=== PATIENT | female | born 1945 | race Caucasian/White ===

== ENCOUNTER 2021-05-30 18:03 | Emergency (ER) | payer OTHER ==
[2021-05-30 20:26] LABS: BASOPHIL 0.6 % (0-2); EOSINOPHIL 3.5 % (0-7); HCT 53.1 % (37.0-47.0); HGB 17.8 g/dl (12.5-16.0); LYMPHOCYTE 30.9 % (15-48); MCH 30.5 pg (25.0-31.0); MCHC 33.5 g/dL (32.0-36.0); MCV 91.1 fL (78.0-100.0); MONOCYTE 9.8 % (0-12); MPV 10.6 fL (6.0-9.5); NEUTROPHIL 54.8 % (41-80); NRBC 0; PLT 200 K/uL (150-400); RBC 5.83 M/uL (4.20-5.40); RDW 14.4 % (11.5-14.0); WBC 7.7 K/uL (4.0-10.5)
[2021-05-30 20:44] LABS: ALBUMIN 3.7 g/dL (3.4-5.0); BILIRUBIN - TOTAL 1.6 mg/dL (0.2-1.0); BUN/CREAT RATIO (CALC) 18.3 RATIO; CREATININE 0.71 mg/dL (0.51-0.95); GLOBULIN (CALCULATION) 3.8 g/dL; POTASSIUM 3.5 mmol/L (3.5-5.1); TOTAL PROTEIN 7.5 g/dL (6.4-8.2)
[2021-05-30] MEDS ORDERED: NORCO 5-325 TA1 EACH PO (21:43)
== END 2021-05-30 22:05 | disposition home or self-care (01) ==
LOC: FER 18:03
PROVIDERS: Internal Medicine
DX: M54.50 Low back pain, unspecified (principal); M25.562 Pain in left knee; M25.561 Pain in right knee; M25.572 Pain in left ankle and joints of left foot; I10 Essential (primary) hypertension; Z88.2 Allergy status to sulfonamides; W01.0XXA Fall on same level from slipping, tripping and stumbling without subsequent striking against object, initial encounter; Y92.129 Unspecified place in nursing home as the place of occurrence of the external cause
CPT/HCPCS: 36415; 72131; 72192; 73560; 73610; 80053; 83690; 85025